=== PATIENT | female | born 1960 | race Caucasian/White ===

== ENCOUNTER 2017-02-03 10:31 | Outpatient (CLI) | payer BC ==
--- NOTE | 2017-02-04 14:34 | Mammography Report ---
DIGITAL SCREENING MAMMOGRAM: 02/03/2017 CLINICAL INDICATION: A 56-year-old, for screening, history of benign biopsy. COMPARISON: 07/2014, 01/2013, 09/2010, 06/2008. TECHNIQUE: Routine CC and MLO projections were obtained of the breasts. FINDINGS: The breasts again demonstrate scattered fibroglandular densities bilaterally. Circumscribe d nodule in the left upper outer central breast is stable. Coarse and punctate, typically benign calc ifications are present. No suspicious masses, clustered microcalcifications, or regions of architectu ral distortion are identified. IMPRESSION: BENIGN FINDINGS. RECOMMENDATION: ROUTINE ANNUAL SCREENING UNLESS OTHERWISE CLINICALLY INDICATED. BIRADS CATEGORY 2-BENIGN FINDINGS. STANDARD QUALIFYING STATEMENTS 1. This examination was reviewed with the aid of Computer-Aided Detection (CAD). 2. A negative or benign imaging report should not delay biopsy if clinically suspicious findings are present. Consider surgical consultation if warranted. More than 5% of cancers are not identified by i maging. 3. Dense breasts may obscure an underlying neoplasm. JOB #: [id number] EXT JOB #:[id number]
== END 2017-02-03 10:32 | disposition home or self-care (01) ==
LOC: DI.S 10:31
PROVIDERS: ATTEND Naturopath
DX: Z12.31 Encounter for screening mammogram for malignant neoplasm of breast (principal); Z80.3 Family history of malignant neoplasm of breast
CPT/HCPCS: 77067

== ENCOUNTER 2017-08-13 07:22 | Outpatient (CLI) | payer OTHER ==
[2017-08-13 10:24] LABS: BASOPHILS # (AUTO) 0.1 10^3/uL (0.0-0.1); BASOPHILS % (AUTO) 1.1 %; EOSINOPHILS # (AUTO) 0.4 10^3/uL (0.0-0.7); EOSINOPHILS % (AUTO) 6.6 %; HGB - HEMOGLOBIN 14.2 g/dL (12.0-16.0); LYMPHOCYTES # (AUTO) 1.8 10^3/uL (1.5-3.5); LYMPHOCYTES % (AUTO) 30.7 %; MEAN CORPUSCULAR HEMOGLOBIN 31.5 pg (27.0-31.0); MEAN CORPUSCULAR HGB CONC 34.6 g/dL (32.0-36.0); MEAN CORPUSCULAR VOLUME 91.2 fL (81.0-99.0); MEAN PLATELET VOLUME 8.7 fL (7.9-10.8); MONOCYTES # (AUTO) 0.4 10^3/uL (0.0-1.0); MONOCYTES % (AUTO) 7.5 %; NEUTROPHILS # (AUTO) 3.2 10^3/uL (1.5-6.6); NEUTROPHILS % (AUTO) 54.1 %; PLT - PLATELET COUNT 288 10^3/uL (130-450); RED CELL DISTRIBUTION WIDTH 13.3 % (12.0-15.0); WHITE BLOOD COUNT 5.9 x10^3/uL (4.8-10.8)
[2017-08-13 10:42] LABS: ALBUMIN 4.4 g/dL (3.2-5.5); ALBUMIN/GLOBULIN RATIO 1.6 (1.0-2.2); ALKALINE PHOSPHATASE 47 IU/L (42-121); ALT ALANINE AMINOTRANSFERASE 34 IU/L (10-60); AST ASPARTATE AMINOTRANSFERASE 27 IU/L (10-42); BILIRUBIN,TOTAL 0.7 mg/dL (0.2-1.0); BUN - BLOOD UREA NITROGEN 16 mg/dL (6-20); CARBON DIOXIDE - CO2 24 mmol/L (21-32); CHLORIDE 105 mmol/L (101-111); CHOL/HDL RATIO 2.9 (<4.4); CHOLESTEROL 246 mg/dL; CREATININE 0.7 mg/dL (0.4-1.0); GFR - MDRD 87 (>89); GLUCOSE 92 mg/dL (70-100); HDL CHOLESTEROL 84 mg/dL; LDL CHOLESTEROL,CALCULATED 143 mg/dL; LDL/HDL RATIO 1.7 (<4.4); SODIUM 139 mmol/L (135-145); TOTAL PROTEIN 7.1 g/dL (6.7-8.2); VLDL CHOLESTEROL 19 mg/dL
[2017-08-13 10:46] LABS: T4 (THYROXINE) 5.45 ug/dL (6.09-12.23)
[2017-08-13 10:49] LABS: THYROID STIMULATING HORMONE 5.05 uIU/mL (0.34-5.60)
[2017-08-13 10:51] LABS: FREE T4 (FREE THYROXINE) 0.66 ng/dL (0.58-1.64)
[2017-08-13 10:54] LABS: FERRITIN 44.8 ng/mL (11.0-306.8)
== END 2017-08-13 07:23 | disposition home or self-care (01) ==
LOC: LAB.F 07:22
PROVIDERS: ATTEND Nurse Practitioner Family
DX: Z00.00 Encounter for general adult medical examination without abnormal findings (principal); E55.9 Vitamin D deficiency, unspecified; E78.5 Hyperlipidemia, unspecified; E03.9 Hypothyroidism, unspecified
CPT/HCPCS: 36415; 80053; 80061; 82306; 82728; 83721; 84432; 84436; 84439; 84443; 84481; 85025; 86800

== ENCOUNTER 2018-03-16 09:35 | Emergency (ER) | payer OTHER ==
[2018-03-16 10:01] VITALS: BP 142/75
[2018-03-16] MEDS ORDERED: LORATADINE 10 MG TABLET PO STA (10:35)
[2018-03-16] MEDS ORDERED: FAMOTIDINE 20 MG TABLET PO STA (10:35)
[2018-03-16] MEDS ORDERED: DEXAMETHASONE 10 MG/ML VIAL PO STA (10:35)
--- NOTE | 2018-03-16 10:39 | ED Physician Documentation ---
History of Present Illness - Stated complaint Stated Complaint: ALLERGIC REACTION - Chief complaint Chief Complaint: Allergic Rx - Additonal information Additional information: hx from pt 57 f hx bee sting allergy not anaphylaxis sting or bite by unknown insect several days ago red and swollen since today throat feel thick Review of Systems Constitutional: denies: Fever Respiratory: denies: Dyspnea, Cough, Wheezing Skin: reports: Rash, Bite / sting PD PAST MEDICAL HISTORY - Present Medications Home Medications: Ambulatory Orders Medication Instructions Recorded Confirmed Loratadine [Claritin] 10 mg PO DAILY #5 tablet 03/16/18 raNITIdine [Zantac] 150 mg PO BID #10 tablet 03/16/18 - Allergies Allergies/Adverse Reactions: Allergies Allergy/AdvReac Type Severity Reaction Status Date / Time polymyxin B Allergy Unknown Verified 03/16/18 10:01 [From Neosporin ([id number])] Sulfa (Sulfonamide Allergy Headache Verified 03/16/18 10:01 Antibiotics) PD ED PE NORMAL - Vitals Vital signs reviewed: Yes - HEENT HEENT: Other (no oral swelling, no hoarse or stridor) - Cardiac Cardiac: RRR - Respiratory Respiratory: No respiratory distress, Clear bilaterally - Derm Derm: Other (approx 3 cm diameter pink induration s abscess streaking, some tiny sup vesilces, more c/w allergic than infection, no retained stinger) Results - Vitals Vitals: Vital Signs - 24 hr 03/16/18 09:57 Temperature 36.7 C Heart Rate 73 Respiratory 15 Rate Blood Pressure 142/75 H O2 Saturation 97 Oxygen O2 Source Room air PD MEDICAL DECISION MAKING - Sepsis Event Vital Signs: Vital Signs - 24 hr 03/16/18 09:57 Temperature 36.7 C Heart Rate 73 Respiratory 15 Rate Blood Pressure 142/75 H O2 Saturation 97 Oxygen O2 Source Room air Departure - Departure Disposition: 01 Home, Self Care Clinical Impression: Allergic reaction to insect sting Qualifiers: Encounter type: initial encounter Injury intent: accidental or unintentional Qualified Code(s): T63.481A - Toxic effect of venom of other arthropod, accidental (unintentional), initial encounter Condition: Good Instructions: ED Bite Sting Insect Gen Allergic React Follow-Up: Asa Rodriguez ARNP [Primary Care Provider] - Prescriptions: Loratadine [Claritin] 10 mg PO DAILY #5 tablet raNITIdine [Zantac] 150 mg PO BID #10 tablet
== END 2018-03-16 11:09 | disposition home or self-care (01) ==
LOC: ED 09:35
DX: T63.441A Toxic effect of venom of bees, accidental (unintentional), initial encounter (principal)
CPT/HCPCS: 99283; A9270

== ENCOUNTER 2018-04-09 13:50 | Outpatient (CLI) | payer OTHER | END 2018-04-09 13:51 | disposition home or self-care (01) | LOC: RT.S 13:50 | PROVIDERS: ATTEND Nurse Practitioner Family | DX: Z01.810 Encounter for preprocedural cardiovascular examination (principal) | CPT/HCPCS: 93005 ==

== ENCOUNTER 2018-04-12 07:08 | Outpatient (CLI) | payer OTHER ==
[2018-04-12 11:09] LABS: BASOPHILS # (AUTO) 0.1 10^3/uL (0.0-0.1); BASOPHILS % (AUTO) 1.2 %; EOSINOPHILS # (AUTO) 0.4 10^3/uL (0.0-0.7); EOSINOPHILS % (AUTO) 6.2 %; HGB - HEMOGLOBIN 13.7 g/dL (12.0-16.0); LYMPHOCYTES # (AUTO) 1.9 10^3/uL (1.5-3.5); LYMPHOCYTES % (AUTO) 28.1 %; MEAN CORPUSCULAR HEMOGLOBIN 31.8 pg (27.0-31.0); MEAN CORPUSCULAR VOLUME 90.8 fL (81.0-99.0); MEAN PLATELET VOLUME 8.4 fL (7.9-10.8); MONOCYTES # (AUTO) 0.5 10^3/uL (0.0-1.0); MONOCYTES % (AUTO) 7.2 %; NEUTROPHILS # (AUTO) 3.9 10^3/uL (1.5-6.6); NEUTROPHILS % (AUTO) 57.3 %; PLT - PLATELET COUNT 347 10^3/uL (130-450); RED BLOOD COUNT 4.32 10^6/uL (4.20-5.40); RED CELL DISTRIBUTION WIDTH 12.8 % (12.0-15.0); WHITE BLOOD COUNT 6.8 x10^3/uL (4.8-10.8)
[2018-04-12 11:17] LABS: ALBUMIN 4.1 g/dL (3.2-5.5); ALBUMIN/GLOBULIN RATIO 1.3 (1.0-2.2); BILIRUBIN,TOTAL 0.8 mg/dL (0.2-1.0); CALCIUM 8.8 mg/dL (8.5-10.3); CREATININE 0.7 mg/dL (0.4-1.0); TOTAL PROTEIN 7.2 g/dL (6.7-8.2)
== END 2018-04-12 07:09 | disposition home or self-care (01) ==
LOC: LAB.F 07:08
PROVIDERS: ATTEND Nurse Practitioner Family
DX: Z01.810 Encounter for preprocedural cardiovascular examination (principal)
CPT/HCPCS: 36415; 80053; 85025

== ENCOUNTER 2018-08-06 09:15 | Outpatient (CLI) | payer OTHER ==
--- NOTE | 2018-08-09 08:42 | Mammography Report ---
Reason: SCREENING MAMMO Procedure Date: 08/06/2018 Accession Number: [id number] / [id number] Procedure: [facility] - Screening Mammo w/Rodríguez CPT Code: FULL RESULT: EXAM: Screening Mammo w/Rodríguez DATE: 08/06/2018 10:10 AM CLINICAL HISTORY: Screening encounter. History of early menses and benign breast biopsy. Family history of breast cancer in an aunt around the age of 50. TECHNIQUE: Bilateral CC and MLO views were obtained. COMPARISON: 02/03/2017 through 10/03/2010. FINDINGS: The breasts demonstrate scattered fibroglandular densities bilaterally. Presumed postbiopsy changes in the region of an unchanged left breast nodule are again seen. No suspicious masses, clustered microcalcifications, or regions of architectural distortion are identified. IMPRESSION: Benign findings RECOMMENDATION: Routine annual screening unless otherwise clinically indicated. BIRADS CATEGORY 2: Benign findings STANDARD QUALIFYING STATEMENTS: 1. This examination was not reviewed with the aid of Computer-Aided Detection (CAD). 2. A negative or benign imaging report should not delay biopsy if clinically suspicious findings are present. Consider surgical consultation if warrented. More than 5% of cancers are not identified by imaging. 3. Dense breasts may obscure an underlying neoplasm. 4. This examination was reviewed with the aid of 3D breast imaging (tomosynthesis).
== END 2018-08-06 09:16 | disposition home or self-care (01) ==
LOC: DI 09:15
PROVIDERS: ATTEND Nurse Practitioner Family
DX: Z12.31 Encounter for screening mammogram for malignant neoplasm of breast (principal); Z80.3 Family history of malignant neoplasm of breast
CPT/HCPCS: 77063; 77067

== ENCOUNTER 2020-04-17 10:02 | Outpatient (CLI) | payer OTHER | END 2020-04-17 10:03 | disposition home or self-care (01) | LOC: LAB 10:02 | PROVIDERS: ATTEND Nurse Practitioner Family | DX: R50.9 Fever, unspecified (principal); Z20.828 Contact with and (suspected) exposure to other viral communicable diseases | CPT/HCPCS: 36415 ==